=== PATIENT | female | born 1985 | race American Indian/Alaskan Native ===

== ENCOUNTER 2019-03-07 14:14 | Inpatient (IN) | payer BC, OTHER ==
--- NOTE | 2019-03-07 15:54 | C.PDOC ---
History Of Present Illness 33-year-old female is sent to the ED by Dr. Lewis for evaluation of ectopic . Patient states she had been experiencing brown discharge and suprapubic/ right-sided abdominal pain for around 2-3 days, and found out that she is today. Patient states her last menstrual period was 01/22/2019 and she is . Patient denies fever, chills, back pain, or any urinary symptoms at this time. <Ana Maria Montiel - Last Filed: 03/07/19 19:00> History Per: Patient History/Exam Limitations: no limitations Onset/Duration Of Symptoms: Days (2-3) Current Symptoms Are (Timing): Still Present Location Of Pain/Discomfort: Suprapubic, Other (right-sided ) Quality Of Discomfort: "Pain" Associated Symptoms: denies: Fever, Chills, Back Pain, Urinary Symptoms Additional History Per: Patient Abnormal Vaginal Bleeding: No : 5 Para: 4 <Ana Maria Montiel - Last Filed: 03/07/19 19:00> <Cristi Dean - Last Filed: 03/07/19 20:05> Time Seen by Provider: 03/07/19 15:23 Chief Complaint (Nursing): Abdominal Pain Past Medical History Reviewed: Historical Data, Nursing Documentation, Vital Signs Vital Signs: Last Vital Signs Temp 99.6 F 03/07/19 14:24 Pulse 91 H 03/07/19 14:24 Resp 18 03/07/19 14:24 BP 116/75 03/07/19 14:24 Pulse Ox 99 03/07/19 14:24 Primary Care Provider: Trish Arteaga - Medical History PMH: No Chronic Diseases Surgical History: No Surg Hx Family History: States: Unknown Family Hx - Social History Hx Tobacco Use: No Hx Alcohol Use: Yes Hx Substance Use: No - Immunization History Hx Tetanus Toxoid Vaccination: No Hx Influenza Vaccination: No Hx Pneumococcal Vaccination: No <Ana Maria Montiel - Last Filed: 03/07/19 19:00> Vital Signs: Last Vital Signs Temp 98.4 F 03/07/19 17:00 Pulse 86 03/07/19 17:00 Resp 18 03/07/19 17:00 BP 109/71 03/07/19 17:00 Pulse Ox 99 03/07/19 19:04 <Cristi Dean - Last Filed: 03/07/19 20:05> Review Of Systems Constitutional: Negative for: Fever, Chills Gastrointestinal: Positive for: Abdominal Pain (suprapubic, right-sided ) Genitourinary: Positive for: Vaginal Discharge. Negative for: Dysuria, Hematuria Musculoskeletal: Negative for: Back Pain <Ana Maria Montiel - Last Filed: 03/07/19 19:00> Physical Exam - Physical Exam Appears: Non-toxic, No Acute Distress, Other (obese female ) Skin: Normal Color, Warm, Dry Head: Atraumatic, Normacephalic Eye(s): bilateral: Normal Inspection Oral Mucosa: Moist Neck: Supple Chest: Symmetrical, No Deformity, No Tenderness Cardiovascular: Rhythm Regular, No Murmur Respiratory: Normal Breath Sounds, No Rales, No Rhonchi, No Wheezing Gastrointestinal/Abdominal: Soft, No Tenderness, No Guarding, No Rebound Extremity: Normal ROM, Capillary Refill (less than 2 seconds ) Neurological/Psych: Oriented x3, Normal Speech, Normal Cognition <Ana Maria Montiel - Last Filed: 03/07/19 19:00> ED Course And Treatment - Laboratory Results Result Diagrams: 03/07/19 16:11 03/07/19 16:11 O2 Sat by Pulse Oximetry: 99 (on RA) Pulse Ox Interpretation: Normal <Ana Maria Montiel - Last Filed: 03/07/19 19:00> - Laboratory Results Result Diagrams: 03/07/19 16:11 03/07/19 16:11 Lab Results: PT 11.2 SECONDS (9.7-12.2) 03/07/19 19:20 INR 1.0 03/07/19 19:20 APTT 29.0 SECONDS (21-34) 03/07/19 19:20 Total Bilirubin 1.1 mg/dL (0.2-1.3) 03/07/19 16:11 AST 24 U/L (14-36) 03/07/19 16:11 ALT 28 U/L (9-52) 03/07/19 16:11 Alkaline Phosphatase 41 U/L (38-126) 03/07/19 16:11 Total Protein 6.8 g/dL (6.3-8.3) 03/07/19 16:11 Albumin 3.7 g/dL (3.5-5.0) 03/07/19 16:11 Globulin 3.1 gm/dL (2.2-3.9) 03/07/19 16:11 Albumin/Globulin Ratio 1.2 (1.0-2.1) 03/07/19 16:11 Urine Color Yellow (YELLOW) 03/07/19 16:26 Urine Clarity Clear (Clear) 03/07/19 16:26 Urine pH 7.0 (5.0-8.0) 03/07/19 16:26 Ur Specific [place] 1.013 (1.003-1.030) 03/07/19 16:26 Urine Protein Negative mg/dL (NEGATIVE) 03/07/19 16:26 Urine Glucose (UA) Normal mg/dL (Normal) 03/07/19 16:26 Urine Ketones Negative mg/dL (NEGATIVE) 03/07/19 16:26 Urine Blood 2+ (NEGATIVE) H 03/07/19 16:26 Urine Nitrate Negative (NEGATIVE) 03/07/19 16:26 Urine Bilirubin Negative (NEGATIVE) 03/07/19 16:26 Urine Urobilinogen Normal mg/dL (0.2-1.0) 03/07/19 16:26 Ur Leukocyte Esterase Neg [place]/uL (Negative) 03/07/19 16:26 Urine WBC (Auto) < 1 /hpf (0-5) 03/07/19 16:26 Urine RBC (Auto) < 1 /hpf (0-3) 03/07/19 16:26 Ur Squamous Epith Cells 1 /hpf (0-5) 03/07/19 16:26 Beta HCG, Quant 3412.50 mIU/ML 03/07/19 16:11 <Cristi Dean - Last Filed: 03/07/19 20:05> Medical Decision Making Medical Decision Making: Impression: 33 year old female with vaginal discharge, suprapubic/right-sided abdominal pain Plan: * bloodwork * urinalysis * OB transvaginal ultrasound * reassess and disposition Progress: Bloodwork, urinalysis, and OB transvaginal ultrasound ordered and reviewed. [address] Weston that pt has ectopic; Dr Debbie osorio; states pt to go to ob hospitalist. Dr Lau notified to come see pt. second saline lock to pe placed. 1800 s/o top Dr Dean <Ana Maria Montiel - Last Filed: 03/07/19 19:00> Disposition - Disposition Disposition Time: 19:03 <Ana Maria Montiel - Last Filed: 03/07/19 19:00> Discussed With .: Kayla Lau Comment: accepted the pt [facility] and took over the care at 8:04 PM Doctor Will See Patient In The: Hospital Counseled Patient/Family Regarding: Studies Performed, Diagnosis <Cristi Dean - Last Filed: 03/07/19 20:05> - Disposition Disposition: HOSPITALIZED Condition: FAIR Forms: [facility] ([place]) - Clinical Impression Clinical Impression: Ectopic - PA / REFERRAL NURSE / Resident Statement MD/DO has reviewed & agrees with the documentation as recorded. - Scribe Statement The provider has reviewed the documentation as recorded by the Scribe (Zuleika Nguyen) All medical record entries made by the Scribe were at my direction and personally dictated by me. I have reviewed the chart and agree that the record accurately reflects my personal performance of the history, physical exam, medical decision making, and the department course for this patient. I have also personally directed, reviewed, and agree with the discharge instructions and disposition. <Ana Maria Montiel - Last Filed: 03/07/19 19:00> Physician Patient Turnover Patient Signed Over To: Cristi Dean Handoff Comments: f/u with Dr Lau, pt has ectopic <Ana Maria Montiel - Last Filed: 03/07/19 19:00> Decision To Admit <Ana Maria Montiel - Last Filed: 03/07/19 19:00> - Pt Status Changed To: Hospital Disposition Of: SDS- Endo,OR,Cath,IR - . Bed Request Type: Regular Admitting Physician: Kayla Lau <Cristi Dean - Last Filed: 03/07/19 20:05> - . Patient Diagnosis: Ectopic
[2019-03-07 16:17] LABS: BASO % 0.4 % (0.0-2.0); EOS # 0.1 K/uL (0.0-0.7); EOS % 1.6 % (0.0-4.0); HEMOGLOBIN 11.7 g/dL (11.0-16.0); LYMPH # 1.7 K/uL (1.0-4.3); LYMPH % 29.3 % (20.0-40.0); MEAN CELL VOLUME 98.4 fL (81.0-99.0); MEAN CORPUSCULAR HEMOGLOBIN 33.5 pg (27.0-31.0); MEAN CORPUSCULAR HGB CONC 34.1 g/dL (33.0-37.0); MEAN PLATELET VOLUME 8.8 fL (7.2-11.7); MONO # 0.6 K/uL (0.0-0.8); MONO % 11.1 % (0.0-10.0); NEUT # 3.3 K/uL (1.8-7.0); NEUT % 57.6 % (50.0-75.0); RBC 3.5 Mil/uL (3.80-5.20); RED CELL DISTRIBUTION WIDTH 12.4 % (11.5-14.5); WHITE BLOOD COUNT 5.8 K/uL (4.8-10.8)
[2019-03-07 16:28] LABS: SQUAMOUS EPITHIAL 1 /hpf (0-5); URINE BILIRUBIN NEGATIVE (NEGATIVE); URINE BLOOD 2+ (NEGATIVE); URINE CLARITY Clear (Clear); URINE COLOR Yellow (YELLOW); URINE GLUCOSE (UA) NORMAL (Normal); URINE LEUKOCYTE ESTERASE NEG Leu/uL (Negative); URINE PROTEIN NEGATIVE (NEGATIVE); URINE UROBILINOGEN NORMAL mg/dL (0.2-1.0)
[2019-03-07 16:29] LABS: ALB/GLOB RATIO 1.2 (1.0-2.1); ALBUMIN 3.7 g/dL (3.5-5.0); ALT/SGPT 28 U/L (9-52); AST/SGOT 24 U/L (14-36); BLOOD UREA NITROGEN 11 mg/dL (7-17); CALCIUM 8.7 mg/dl (8.6-10.4); GFR NON-AFRICAN AMERICAN > 60
--- NOTE | 2019-03-07 18:33 | US ---
Date of service: 03/07/2019 Indication: low ab pain, eval for ectopic Comparison: None available Technique: Real-time transabdominal pelvic ultrasound was performed. In addition a transvaginal pelvic ultrasound was necessary to better depict pelvic anatomy. Findings: Uterus measures approximately 13.5 x 6.4 x 6.9 cm. Anteverted. Cervix length measures approximately 4.0 cm. Large complex mass is noted in the region of the right adnexa with evidence of gestational sac measuring 1.1 cm consistent with gestational age 5 weeks 1 day. 2 mm yolk sac. 0.4 cm crown-rump length consistent with gestational age 6 weeks 0 days. heart motion is detected measuring approximately 113.4 beats per minute. Complex pelvic free fluid. The right ovary measures 4.3 x 2.1 x 2.9 cm. The left ovary measures 6.6 x 6.0 x 7.7 cm and contains evidence of 4.9 x 4.3 x 4.8 cm corpus luteal cyst. Blood flow was demonstrated to both ovaries. Impression: Large right adnexal complex mass consistent with ectopic as described above. Estimated gestational age 5 weeks 1 day by gestational sac calculation and 6 weeks 0 days by crown-rump length calculation. heartbeat is detected measuring approximately 113.4 beats per minute. Complex pelvic free fluid. 4.9 x 4.3 x 4.8 cm left corpus luteal cyst. Findings discussed with LUCA Montiel on 03/07/2019 at 6:26 p.m.
[2019-03-07] MEDS ORDERED: Sodium Chloride 0.9% 1,000 ML IV ONE (19:07)
[2019-03-07 19:36] LABS: PROTHROMBIN TIME 11.2 SECONDS (9.7-12.2)
[2019-03-07] MEDS ORDERED: Midazolam 2 MG/2 ML VIAL ONE (20:19)
[2019-03-07] MEDS ORDERED: Propofol 10 mg/ml Inj (20 ML) ONE ×2 (20:19→22:21)
[2019-03-07] MEDS ORDERED: Succinylcholine Chloride 20 mg/ml Syr (5 ml) IV ONE (20:20)
--- NOTE | 2019-03-07 20:24 | CP.PCM.HP ---
History of Present Illness - History of Present Illness History of Present Illness: History Of Present Illness 33-year-old female is sent to the ED by Dr. Lewis for evaluation of ectopic . Patient states she had been experiencing brown discharge and suprapubic/ right-sided abdominal pain for around 2-3 days, and found out that she is today. Patient states her last menstrual period was 01/22/2019 and she is. Patient denies fever, chills, back pain, or any urinary symptoms at this time. Admits to regular menses History Per: Patient History/Exam Limitations: no limitations Onset/Duration Of Symptoms: Days (2-3) Current Symptoms Are (Timing): Still Present Location Of Pain/Discomfort: Suprapubic, Other (right-sided ) Quality Of Discomfort: "Pain" Associated Symptoms: denies: Fever, Chills, Back Pain, Urinary Symptoms Additional History Per: Patient Abnormal Vaginal Bleeding: No : 4 Para: 2011 Time Seen by Provider: 03/07/19 20:15 Chief Complaint (Nursing): Abdominal Pain Past Medical History Reviewed: Historical Data, Nursing Documentation, Vital Signs Vital Signs: Last Vital Signs Temp 99.6 F 03/07/19 14:24 Pulse 91 H 03/07/19 14:24 Resp 18 03/07/19 14:24 BP 116/75 03/07/19 14:24 Pulse Ox 99 03/07/19 14:24 Primary Care Provider: Trish Arteaga - Medical History PMH: No Chronic Diseases Surgical History: 2 Previous C/S's Family History: States: Unknown Family Hx - Social History Hx Tobacco Use: No Hx Alcohol Use: Yes Hx Substance Use: No - Immunization History Hx Tetanus Toxoid Vaccination: No Hx Influenza Vaccination: No Hx Pneumococcal Vaccination: No Vital Signs: Last Vital Signs Temp 98.4 F 03/07/19 17:00 Pulse 86 03/07/19 17:00 Resp 18 03/07/19 17:00 BP 109/71 03/07/19 17:00 Pulse Ox 99 03/07/19 19:04 Review Of Systems Constitutional: Negative for: Fever, Chills Gastrointestinal: Positive for: Abdominal Pain (suprapubic, right-sided ) Genitourinary: Positive for: Vaginal Discharge. Negative for: Dysuria, Hematuria Musculoskeletal: Negative for: Back Pa Physical Exam - Physical Exam Appears: Non-toxic, No Acute Distress, Other (obese female ) Skin: Normal Color, Warm, Dry Head: Atraumatic, Normacephalic Eye(s): bilateral: Normal Inspection Oral Mucosa: Moist Neck: Supple Chest: Symmetrical, No Deformity, No Tenderness Cardiovascular: Rhythm Regular, No Murmur Respiratory: Normal Breath Sounds, No Rales, No Rhonchi, No Wheezing Gastrointestinal/Abdominal: Soft, No Tenderness, No Guarding, No Rebound Extremity: Normal ROM, Capillary Refill (less than 2 seconds ) Neurological/Psych: Oriented x3, Normal Speech, Normal Cognition Pelvic exam: External Genitalia, Vagina and Cervix WNL. Minimal tenderness over RLQ + fulness over Right Adnexa. No Guarding, Rebound ED Course And Treatment - Laboratory Results Result Diagrams: 03/07/19 16:11 03/07/19 16:11 O2 Sat by Pulse Oximetry: 99 (on RA) Pulse Ox Interpretation: Normal - Laboratory Results Result Diagrams: 03/07/19 16:11 03/07/19 16:11 Lab Results: PT 11.2 SECONDS (9.7-12.2) 03/07/19 19:20 INR 1.0 03/07/19 19:20 APTT 29.0 SECONDS (21-34) 03/07/19 19:20 Total Bilirubin 1.1 mg/dL (0.2-1.3) 03/07/19 16:11 AST 24 U/L (14-36) 03/07/19 16:11 ALT 28 U/L (9-52) 03/07/19 16:11 Alkaline Phosphatase 41 U/L (38-126) 03/07/19 16:11 Total Protein 6.8 g/dL (6.3-8.3) 03/07/19 16:11 Albumin 3.7 g/dL (3.5-5.0) 03/07/19 16:11 Globulin 3.1 gm/dL (2.2-3.9) 03/07/19 16:11 Albumin/Globulin Ratio 1.2 (1.0-2.1) 03/07/19 16:11 Urine Color Yellow (YELLOW) 03/07/19 16:26 Urine Clarity Clear (Clear) 03/07/19 16:26 Urine pH 7.0 (5.0-8.0) 03/07/19 16:26 Ur Specific [place] 1.013 (1.003-1.030) 03/07/19 16:26 Urine Protein Negative mg/dL (NEGATIVE) 03/07/19 16:26 Urine Glucose (UA) Normal mg/dL (Normal) 03/07/19 16:26 Urine Ketones Negative mg/dL (NEGATIVE) 03/07/19 16:26 Urine Blood 2+ (NEGATIVE) H 03/07/19 16:26 Urine Nitrate Negative (NEGATIVE) 03/07/19 16:26 Urine Bilirubin Negative (NEGATIVE) 03/07/19 16:26 Urine Urobilinogen Normal mg/dL (0.2-1.0) 03/07/19 16:26 Ur Leukocyte Esterase Neg [place]/uL (Negative) 03/07/19 16:26 Urine WBC (Auto) < 1 /hpf (0-5) 03/07/19 16:26 Urine RBC (Auto) < 1 /hpf (0-3) 03/07/19 16:26 Ur Squamous Epith Cells 1 /hpf (0-5) 03/07/19 16:26 Beta HCG, Quant 3412.50 mIU/ML 03/07/19 16:11 Medical Decision Making Medical Decision Making: Impression: 33 year old female with vaginal discharge, suprapubic/right-sided abdominal pain Plan: * bloodwork * urinalysis * OB transvaginal ultrasound * reassess and disposition Progress: Bloodwork, urinalysis, and OB transvaginal ultrasound ordered and reviewed. [address] Weston that pt has ectopic; Dr Debbie osorio; states pt to go to ob hospitalist. Dr Lau notified to come see pt. second saline lock to pe placed. 1800 s/o top Dr Dean Disposition - Disposition Disposition Time: 19:03 Discussed With: Patient and significant other Counseled Patient/Family Regarding: Studies Performed, Diagnosis - Disposition Disposition: HOSPITALIZED Condition: FAIR Forms: [facility] ([place]) - Clinical Impression Clinical Impression: Ectopic Decision To Admit - Pt Status Changed To: Hospital Disposition Of: SDS- OR, - . Bed Request Type: Regular Admitting Physician: Kayla Lau - . Patient Diagnosis: Ectopic Present on Admission - Present on Admission Any Indicators Present on Admission: No Past Patient History - Past Social History Smoking Status: Never Smoked - PSYCHIATRIC Hx Substance Use: No - SURGICAL HISTORY Hx Surgeries: Yes Hx Section: Yes Hx Orthopedic Surgery: Yes (left foot sx) Meds Allergies/Adverse Reactions: Allergies Allergy/AdvReac Type Severity Reaction Status Date / Time No Known Allergies Allergy Verified 03/07/19 14:28 Results - Vital Signs Recent Vital Signs: Last Vital Signs Temp 98.4 F 03/07/19 20:17 Pulse 82 03/07/19 20:17 Resp 18 03/07/19 20:17 BP 112/70 03/07/19 20:17 Pulse Ox 100 03/07/19 20:17 - Labs Result Diagrams: 03/08/19 07:29 03/07/19 16:11 Labs: Laboratory Results - last 24 hr 03/07/19 03/07/19 03/07/19 16:11 16:11 16:11 WBC 5.8 RBC 3.50 L Hgb 11.7 Hct 34.4 MCV 98.4 MCH 33.5 H MCHC 34.1 RDW 12.4 Plt Count 189 MPV 8.8 Neut % (Auto) 57.6 Lymph % (Auto) 29.3 [place] % (Auto) 11.1 H Eos % (Auto) 1.6 Baso % (Auto) 0.4 Neut # (Auto) 3.3 Lymph # (Auto) 1.7 [place] # (Auto) 0.6 Eos # (Auto) 0.1 Baso # (Auto) 0.0 PT INR APTT Sodium 137 Potassium 3.9 Chloride 104 Carbon Dioxide 25 Anion Gap 12 BUN 11 Creatinine 0.8 Est GFR ( Amer) > 60 Est GFR (Non-Af Amer) > 60 Random Glucose 97 Calcium 8.7 Total Bilirubin 1.1 AST 24 ALT 28 Alkaline Phosphatase 41 Total Protein 6.8 Albumin 3.7 Globulin 3.1 Albumin/Globulin Ratio 1.2 Beta HCG, Quant 3412.50 Urine Color Urine Clarity Urine pH Ur Specific [place] Urine Protein Urine Glucose (UA) Urine Ketones Urine Blood Urine Nitrate Urine Bilirubin Urine Urobilinogen Ur Leukocyte Esterase Urine WBC (Auto) Urine RBC (Auto) Ur Squamous Epith Cells Blood Type O POSITIVE Antibody Screen Negative 03/07/19 03/07/19 16:26 19:20 WBC RBC Hgb Hct MCV MCH MCHC RDW Plt Count MPV Neut % (Auto) Lymph % (Auto) [place] % (Auto) Eos % (Auto) Baso % (Auto) Neut # (Auto) Lymph # (Auto) [place] # (Auto) Eos # (Auto) Baso # (Auto) PT 11.2 INR 1.0 APTT 29.0 Sodium Potassium Chloride Carbon Dioxide Anion Gap BUN Creatinine Est GFR ( Amer) Est GFR (Non-Af Amer) Random Glucose Calcium Total Bilirubin AST ALT Alkaline Phosphatase Total Protein Albumin Globulin Albumin/Globulin Ratio Beta HCG, Quant Urine Color Yellow Urine Clarity Clear Urine pH 7.0 Ur Specific [place] 1.013 Urine Protein Negative Urine Glucose (UA) Normal Urine Ketones Negative Urine Blood 2+ H Urine Nitrate Negative Urine Bilirubin Negative Urine Urobilinogen Normal Ur Leukocyte Esterase Neg Urine WBC (Auto) < 1 Urine RBC (Auto) < 1 Ur Squamous Epith Cells 1 Blood Type Antibody Screen Assessment & Plan - Assessment and Plan (Free Text) Assessment: Right Ectopic Plan: Operative Procedure ie Laparoscopy and possible Laparotomy, Possible Right Salpingo-Oophorectomy, possible Hysterectomy. Procedure, risks and possible complications fully reviewed with patient and her partner and both verbalized understanding after all of their questions were answered to their full satisfaction. Pt requested to proceed and signed the consent, including the blood transfusion consent. Willl proceed - Date & Time Date: 03/07/19 Time: 20:40
[2019-03-07] MEDS ORDERED: ceFOXitin IV 1 gm/100 ml in NS 2 GM/200 ML BAG ONE (20:30)
[2019-03-07] MEDS ORDERED: Rocuronium 10 mg/ml (5 ml) ONE (21:02)
[2019-03-07] MEDS ORDERED: Phenylephrine 10 mg/ml Inj ONE (21:06)
[2019-03-07] MEDS ORDERED: Neostigmine 1:1000 (1 mg/ml) Inj ONE (21:36)
[2019-03-07] MEDS ORDERED: Esmolol 100 mg/10ml Inj IV ONE (21:59)
[2019-03-07] MEDS ORDERED: Trimethobenzamide 200 mg/2 mL Inj IM PRN (23:09)
[2019-03-07] MEDS ORDERED: HYDROmorphone 0.5 mg/0.5 ml ISec ONE ×3 (23:11→23:47)
[2019-03-07] MEDS: HYDROmorphone 0.5 mg/0.5 ml ISec IVP PRN ×3 (23:11→23:45)
[2019-03-07] MEDS ORDERED: cefOXitin IV 1 gm in Dextrose 1 GM/50 ML BAG IVPB SCH (23:15)
[2019-03-07] MEDS ORDERED: Lactated Ringer's 1,000 ML IV SCH (23:15)
--- NOTE | 2019-03-07 23:36 | PCM.SURG1 ---
Surgeon's Initial Post Op Note - Surgeon's Notes Surgeon: Kayla Lau Robotic Welder: Omer Turk Type of Anesthesia: General Endo Anesthesia Administered By: Dr. Enriquez Pre-Operative Diagnosis: Large Right Ectopic with Positive Cardiac Activity. Large BMI. History of 2 previous Sections Operative Findings: Large right Ectopic . Multiple pelvic, Omental and Bowel adhesions. Hemoperitoneun Post-Operative Diagnosis: S/P Failed Laparoscopy. Large Right Ectopic . Large Hemoperitoneum Operation Performed: EUA, Attempted Laparoscopy, Exploratory Laparotomy with complete resection of Right Fallopian Tube with ectopic and with Ligature, Lysis of adhesions, Evacuation of Hemoperitoneum Specimen/Specimens Removed: Right Fallopian Tube with ectopic Estimated Blood Loss: EBL {In ML}: 600 Blood Products Given: N/A Drains Used: No Drains Post-Op Condition: Good Date of Surgery/Procedure: 03/07/19 Time of Surgery/Procedure: 20:30
--- NOTE | 2019-03-07 23:49 | CP.PCM.CON ---
History of Present Illness - History of Present Illness History of Present Illness: History Of Present Illness 33-year-old female is sent to the ED by Dr. Lewis for evaluation of ectopic . Patient states she had been experiencing brown discharge and suprapubic/ right-sided abdominal pain for around 2-3 days, and found out that she is today. Patient states her last menstrual period was 01/22/2019 and she is. Patient denies fever, chills, back pain, or any urinary symptoms at this time. Admits to regular menses History Per: Patient History/Exam Limitations: no limitations Onset/Duration Of Symptoms: Days (2-3) Current Symptoms Are (Timing): Still Present Location Of Pain/Discomfort: Suprapubic, Other (right-sided ) Quality Of Discomfort: "Pain" Associated Symptoms: denies: Fever, Chills, Back Pain, Urinary Symptoms Additional History Per: Patient Abnormal Vaginal Bleeding: No : 4 Para: 2011 Time Seen by Provider: 03/07/19 20:15 Chief Complaint (Nursing): Abdominal Pain Past Medical History Reviewed: Historical Data, Nursing Documentation, Vital Signs Vital Signs: Last Vital Signs Temp 99.6 F 03/07/19 14:24 Pulse 91 H 03/07/19 14:24 Resp 18 03/07/19 14:24 BP 116/75 03/07/19 14:24 Pulse Ox 99 03/07/19 14:24 Primary Care Provider: Trish Arteaga - Medical History PMH: No Chronic Diseases Surgical History: 2 Previous C/S's Family History: States: Unknown Family Hx - Social History Hx Tobacco Use: No Hx Alcohol Use: Yes Hx Substance Use: No - Immunization History Hx Tetanus Toxoid Vaccination: No Hx Influenza Vaccination: No Hx Pneumococcal Vaccination: No Vital Signs: Last Vital Signs Temp 98.4 F 03/07/19 17:00 Pulse 86 03/07/19 17:00 Resp 18 03/07/19 17:00 BP 109/71 03/07/19 17:00 Pulse Ox 99 03/07/19 19:04 Review Of Systems Constitutional: Negative for: Fever, Chills Gastrointestinal: Positive for: Abdominal Pain (suprapubic, right-sided ) Genitourinary: Positive for: Vaginal Discharge. Negative for: Dysuria, Hematuria Musculoskeletal: Negative for: Back Pa Physical Exam - Physical Exam Appears: Non-toxic, No Acute Distress, Other (obese female ) Skin: Normal Color, Warm, Dry Head: Atraumatic, Normacephalic Eye(s): bilateral: Normal Inspection Oral Mucosa: Moist Neck: Supple Chest: Symmetrical, No Deformity, No Tenderness Cardiovascular: Rhythm Regular, No Murmur Respiratory: Normal Breath Sounds, No Rales, No Rhonchi, No Wheezing Gastrointestinal/Abdominal: Soft, No Tenderness, No Guarding, No Rebound Extremity: Normal ROM, Capillary Refill (less than 2 seconds ) Neurological/Psych: Oriented x3, Normal Speech, Normal Cognition Pelvic exam: External Genitalia, Vagina and Cervix WNL. Minimal tenderness over RLQ + fulness over Right Adnexa. No Guarding, Rebound ED Course And Treatment - Laboratory Results Result Diagrams: 03/07/19 16:11 03/07/19 16:11 O2 Sat by Pulse Oximetry: 99 (on RA) Pulse Ox Interpretation: Normal - Laboratory Results Result Diagrams: 03/07/19 16:11 03/07/19 16:11 Lab Results: PT 11.2 SECONDS (9.7-12.2) 03/07/19 19:20 INR 1.0 03/07/19 19:20 APTT 29.0 SECONDS (21-34) 03/07/19 19:20 Total Bilirubin 1.1 mg/dL (0.2-1.3) 03/07/19 16:11 AST 24 U/L (14-36) 03/07/19 16:11 ALT 28 U/L (9-52) 03/07/19 16:11 Alkaline Phosphatase 41 U/L (38-126) 03/07/19 16:11 Total Protein 6.8 g/dL (6.3-8.3) 03/07/19 16:11 Albumin 3.7 g/dL (3.5-5.0) 03/07/19 16:11 Globulin 3.1 gm/dL (2.2-3.9) 03/07/19 16:11 Albumin/Globulin Ratio 1.2 (1.0-2.1) 03/07/19 16:11 Urine Color Yellow (YELLOW) 03/07/19 16:26 Urine Clarity Clear (Clear) 03/07/19 16:26 Urine pH 7.0 (5.0-8.0) 03/07/19 16:26 Ur Specific [place] 1.013 (1.003-1.030) 03/07/19 16:26 Urine Protein Negative mg/dL (NEGATIVE) 03/07/19 16:26 Urine Glucose (UA) Normal mg/dL (Normal) 03/07/19 16:26 Urine Ketones Negative mg/dL (NEGATIVE) 03/07/19 16:26 Urine Blood 2+ (NEGATIVE) H 03/07/19 16:26 Urine Nitrate Negative (NEGATIVE) 03/07/19 16:26 Urine Bilirubin Negative (NEGATIVE) 03/07/19 16:26 Urine Urobilinogen Normal mg/dL (0.2-1.0) 03/07/19 16:26 Ur Leukocyte Esterase Neg [place]/uL (Negative) 03/07/19 16:26 Urine WBC (Auto) < 1 /hpf (0-5) 03/07/19 16:26 Urine RBC (Auto) < 1 /hpf (0-3) 03/07/19 16:26 Ur Squamous Epith Cells 1 /hpf (0-5) 03/07/19 16:26 Beta HCG, Quant 3412.50 mIU/ML 03/07/19 16:11 Medical Decision Making Medical Decision Making: Impression: 33 year old female with vaginal discharge, suprapubic/right-sided abdominal pain Plan: * bloodwork * urinalysis * OB transvaginal ultrasound Progress: Bloodwork, urinalysis, and OB transvaginal ultrasound ordered and reviewed. Dr Lewis paged by ER and stated pt to go to ob hospitalist. Dr Lau notified to come see pt Disposition - Disposition Disposition Time: 19:03 Discussed With : Patient and significant other Counseled Patient/Family Regarding: Studies Performed, Diagnosis - Disposition Disposition: HOSPITALIZED Condition: FAIR Forms: [facility] (Setswana) - Clinical Impression Clinical Impression: Ectopic Past Patient History - Past Social History Smoking Status: Never Smoked - PSYCHIATRIC Hx Substance Use: No - SURGICAL HISTORY Hx Surgeries: Yes Hx Section: Yes Hx Orthopedic Surgery: Yes (left foot sx) Meds Allergies/Adverse Reactions: Allergies Allergy/AdvReac Type Severity Reaction Status Date / Time No Known Allergies Allergy Verified 03/07/19 14:28 - Medications Medications: Current Medications Hydromorphone HCl (Dilaudid) 0.5 mg IVP Q5M PRN PRN Reason: Pain, severe (8-10) Stop: 03/07/19 23:59 Last Admin: 03/07/19 23:18 Dose: 0.5 mg Cefoxitin Sodium (Mefoxin Iv 1 Gm Duplex) 1 gm in 50 mls @ 50 mls/hr IVPB Q8H JENI; Protocol Stop: 03/08/19 16:14 Lactated Ringer's (Lactated Ringer's) 1,000 mls @ 125 mls/hr IV .Q8H JENI Morphine Sulfate (Morphine) 10 mg IM Q4H PRN PRN Reason: Pain, severe (8-10) Ondansetron HCl (Zofran Inj) 4 mg IVP ONCE PRN PRN Reason: Nausea/Vomiting Stop: 03/07/19 23:59 Oxycodone/Acetaminophen (Percocet 5/325 Mg Tab) 1 tab PO Q4 PRN PRN Reason: Pain, moderate (4-7) Stop: 03/10/19 23:10 Trimethobenzamide HCl (Tigan) 200 mg IM Q6 PRN PRN Reason: Nausea/Vomiting Results - Vital Signs Recent Vital Signs: Last Vital Signs Temp 97.4 F L 03/07/19 23:00 Pulse 97 H 03/07/19 23:00 Resp 12 03/07/19 23:00 BP 130/76 03/07/19 23:00 Pulse Ox 99 03/07/19 23:00 - Labs Result Diagrams: 03/07/19 16:11 03/07/19 16:11 Labs: Laboratory Results - last 24 hr 03/07/19 03/07/19 03/07/19 16:11 16:11 16:11 WBC 5.8 RBC 3.50 L Hgb 11.7 Hct 34.4 MCV 98.4 MCH 33.5 H MCHC 34.1 RDW 12.4 Plt Count 189 MPV 8.8 Neut % (Auto) 57.6 Lymph % (Auto) 29.3 [place] % (Auto) 11.1 H Eos % (Auto) 1.6 Baso % (Auto) 0.4 Neut # (Auto) 3.3 Lymph # (Auto) 1.7 [place] # (Auto) 0.6 Eos # (Auto) 0.1 Baso # (Auto) 0.0 PT INR APTT Sodium 137 Potassium 3.9 Chloride 104 Carbon Dioxide 25 Anion Gap 12 BUN 11 Creatinine 0.8 Est GFR ( Amer) > 60 Est GFR (Non-Af Amer) > 60 Random Glucose 97 Calcium 8.7 Total Bilirubin 1.1 AST 24 ALT 28 Alkaline Phosphatase 41 Total Protein 6.8 Albumin 3.7 Globulin 3.1 Albumin/Globulin Ratio 1.2 Beta HCG, Quant 3412.50 Urine Color Urine Clarity Urine pH Ur Specific [place] Urine Protein Urine Glucose (UA) Urine Ketones Urine Blood Urine Nitrate Urine Bilirubin Urine Urobilinogen Ur Leukocyte Esterase Urine WBC (Auto) Urine RBC (Auto) Ur Squamous Epith Cells Blood Type O POSITIVE Antibody Screen Negative 03/07/19 03/07/19 16:26 19:20 WBC RBC Hgb Hct MCV MCH MCHC RDW Plt Count MPV Neut % (Auto) Lymph % (Auto) [place] % (Auto) Eos % (Auto) Baso % (Auto) Neut # (Auto) Lymph # (Auto) [place] # (Auto) Eos # (Auto) Baso # (Auto) PT 11.2 INR 1.0 APTT 29.0 Sodium Potassium Chloride Carbon Dioxide Anion Gap BUN Creatinine Est GFR ( Amer) Est GFR (Non-Af Amer) Random Glucose Calcium Total Bilirubin AST ALT Alkaline Phosphatase Total Protein Albumin Globulin Albumin/Globulin Ratio Beta HCG, Quant Urine Color Yellow Urine Clarity Clear Urine pH 7.0 Ur Specific [place] 1.013 Urine Protein Negative Urine Glucose (UA) Normal Urine Ketones Negative Urine Blood 2+ H Urine Nitrate Negative Urine Bilirubin Negative Urine Urobilinogen Normal Ur Leukocyte Esterase Neg Urine WBC (Auto) < 1 Urine RBC (Auto) < 1 Ur Squamous Epith Cells 1 Blood Type Antibody Screen Assessment & Plan - Assessment and Plan (Free Text) Assessment: - Assessment and Plan (Free Text) Assessment: Right Ectopic Plan: Operative Procedure ie Laparoscopy and possible Laparotomy, Possible Right Salpingo-Oophorectomy, possible Hysterectomy. Procedure, risks and possible complications fully reviewed with patient and her partner and both verbalized understanding after all of their questions were answered to their full satisfaction. Pt requested to proceed and signed the consent, including the blood transfusion consent. Willl proceed - Date & Time Date: 03/07/19 Time: 20:40 - Date & Time Date: 03/07/19 Time: 20:10
[2019-03-08] MEDS: cefOXitin IV 1 gm in Dextrose 1 GM/50 ML BAG IVPB SCH ×2 (02:00→10:55)
[2019-03-08] MEDS ORDERED: Morphine 4 MG/ML VIAL IVP PRN (05:00)
[2019-03-08 07:37] LABS: HEMOGLOBIN 11.6 g/dL (11.0-16.0); MEAN CELL VOLUME 97.7 fL (81.0-99.0); MEAN CORPUSCULAR HEMOGLOBIN 34.7 pg (27.0-31.0); MEAN CORPUSCULAR HGB CONC 35.6 g/dL (33.0-37.0); MEAN PLATELET VOLUME 8.9 fL (7.2-11.7); RBC 3.35 Mil/uL (3.80-5.20); RED CELL DISTRIBUTION WIDTH 12.3 % (11.5-14.5)
[2019-03-08 07:40] LABS: WHITE BLOOD COUNT 9.7 K/uL (4.8-10.8)
[2019-03-08] MEDS: Oxycodone/Acetaminophen 5/325 mg Tab PO PRN ×3 (09:26→20:53)
[2019-03-08] MEDS ORDERED: Lactated Ringer's 500 ML IV ONE (11:54)
--- NOTE | 2019-03-08 12:35 | CP.PCM.PN ---
Subjective - Date & Time of Evaluation Date of Evaluation: 03/08/19 Time of Evaluation: 10:30 - Subjective Subjective: [employer] progress note for Pt seen and examined at bedside. Pt is POD #1 s/p exploratory Laparotomy with complete resection of Right Fallopian Tube with ectopic , yysis of adhesions, evacuation of Hemoperitoneum. Pt lying in bed, reports wanted to ambulate and have a diet. Pt reports intermittent pain, 8/10 at its maximum, short duration. Denies flatulence/bowel movement. Pt denies fevers, chills, nausea, chest pain, SOB, diarrhea, constipation. Objective - Vital Signs/Intake and Output Vital Signs (last 24 hours): Temp Pulse Resp BP Pulse Ox 98.9 F 93 H 18 104/63 100 03/08/19 08:00 03/08/19 08:00 03/08/19 08:00 03/08/19 08:00 03/08/19 08:00 Intake and Output: 03/08/19 03/08/19 06:59 18:59 Intake Total 1750 Output Total 300 Balance 1450 - Medications Medications: Current Medications Lactated Ringer's (Lactated Ringer's) 1,000 mls @ 125 mls/hr IV .Q8H JENI Last Admin: 03/08/19 09:33 Dose: 125 mls/hr Morphine Sulfate (Morphine) 5 mg IVP Q4H PRN PRN Reason: Pain, severe (8-10) Last Admin: 03/08/19 05:33 Dose: 5 mg Oxycodone/Acetaminophen (Percocet 5/325 Mg Tab) 1 tab PO Q4 PRN PRN Reason: Pain, moderate (4-7) Stop: 03/10/19 23:10 Last Admin: 03/08/19 09:26 Dose: 1 tab Trimethobenzamide HCl (Tigan) 200 mg IM Q6 PRN PRN Reason: Nausea/Vomiting - Labs Labs: 03/08/19 07:29 03/07/19 16:11 PT 11.2 SECONDS (9.7-12.2) 03/07/19 19:20 INR 1.0 03/07/19 19:20 APTT 29.0 SECONDS (21-34) 03/07/19 19:20 - Constitutional Appears: Non-toxic, No Acute Distress - Head Exam Head Exam: NORMAL INSPECTION - Eye Exam Eye Exam: EOMI - ENT Exam ENT Exam: Mucous Membranes Moist - Respiratory Exam Respiratory Exam: Clear to Ausculation Bilateral, NORMAL BREATHING PATTERN. absent: Rales, Rhonchi, Wheezes - Cardiovascular Exam Cardiovascular Exam: +S1, +S2. absent: Murmur - GI/Abdominal Exam Additional comments: transverse lower abdominal incision, clean dry, intact, koki present, no erythema, no discharge - Extremities Exam Extremities Exam: Full ROM, Normal Inspection. absent: Calf Tenderness, Pedal Edema - Back Exam Back Exam: absent: CVA tenderness (L), CVA tenderness (R) - Neurological Exam Neurological Exam: Alert, Awake, Oriented x3 - Psychiatric Exam Psychiatric exam: Normal Affect, Normal Mood - Skin Skin Exam: Dry, Intact, Normal Color, Warm Assessment and Plan - Assessment and Plan (Free Text) Assessment: 33 F w/ POD # 1, s/p exploratory laparotomy with complete resection of right fallopian tube with ectopic , lysis of adhesions, evacuation of hemoperitoneum Plan: - 500ml LR bolus for possible dehydration (h/H similar to pres-surgery) - c/w IV fluids - pain medication conversion to PO to percocet 1 tab Q4 - encourage ambulation - regular diet - repeat CBC @ 1800
[2019-03-08 20:23] LABS: BASO # 0.1 K/uL (0.0-0.2); BASO % 0.5 % (0.0-2.0); EOS # 0.1 K/uL (0.0-0.7); EOS % 0.5 % (0.0-4.0); HEMOGLOBIN 11.5 g/dL (11.0-16.0); LYMPH # 2.3 K/uL (1.0-4.3); LYMPH % 20.7 % (20.0-40.0); MEAN CELL VOLUME 97.1 fL (81.0-99.0); MEAN CORPUSCULAR HEMOGLOBIN 33.1 pg (27.0-31.0); MEAN CORPUSCULAR HGB CONC 34.1 g/dL (33.0-37.0); MEAN PLATELET VOLUME 8.9 fL (7.2-11.7); MONO # 1.2 K/uL (0.0-0.8); MONO % 10.9 % (0.0-10.0); NEUT # 7.6 K/uL (1.8-7.0); NEUT % 67.4 % (50.0-75.0); NRBC % 0.1 % (0.0-2.0); RBC 3.48 Mil/uL (3.80-5.20); RED CELL DISTRIBUTION WIDTH 12.2 % (11.5-14.5); WHITE BLOOD COUNT 11.3 K/uL (4.8-10.8)
--- NOTE | 2019-03-09 13:49 | CP.PCM.PN ---
Subjective - Date & Time of Evaluation Date of Evaluation: 03/09/19 Time of Evaluation: 10:00 - Subjective Subjective: Patient was seen and examined at bedside. She currently reports a 2/10 pain associated with movement. She reports minimal vaginal spotting, no vaginal discharge. Patient is currently passing gas and urinating, she has not had a bowel movement. She is currently ambulating in the hallway and in her room, reported drinking 3-4 liters of water per day. She is tolerating her solid diet, denies nausea and vomiting. Patient denied fevers, chills, chest pain, chest tightness, shortness of breath, diarrhea, abdominal pain and numbness and tingling on extremities. Objective - Vital Signs/Intake and Output Vital Signs (last 24 hours): Temp Pulse Resp BP Pulse Ox 98.3 F 96 H 18 101/64 98 03/09/19 08:00 03/09/19 08:00 03/09/19 08:00 03/09/19 08:00 03/09/19 08:00 Intake and Output: 03/09/19 03/09/19 06:59 18:59 Intake Total 300 Balance 300 - Medications Medications: Current Medications Lactated Ringer's (Lactated Ringer's) 1,000 mls @ 125 mls/hr IV .Q8H [facility] Last Admin: 03/08/19 09:33 Dose: 125 mls/hr Ibuprofen (Motrin Tab) 600 mg PO QID [facility] Last Admin: 03/09/19 13:31 Dose: Not Given Morphine Sulfate (Morphine) 5 mg IVP Q4H PRN PRN Reason: Pain, severe (8-10) Last Admin: 03/08/19 05:33 Dose: 5 mg Oxycodone/Acetaminophen (Percocet 5/325 Mg Tab) 1 tab PO Q4 PRN PRN Reason: Pain, moderate (4-7) Stop: 03/10/19 23:10 Last Admin: 03/08/19 20:53 Dose: 1 tab Trimethobenzamide HCl (Tigan) 200 mg IM Q6 PRN PRN Reason: Nausea/Vomiting - Labs Labs: 03/08/19 20:12 03/07/19 16:11 PT 11.2 SECONDS (9.7-12.2) 03/07/19 19:20 INR 1.0 03/07/19 19:20 APTT 29.0 SECONDS (21-34) 03/07/19 19:20 - Constitutional Appears: Non-toxic, No Acute Distress - Head Exam Head Exam: NORMAL INSPECTION - Eye Exam Eye Exam: EOMI - ENT Exam ENT Exam: Mucous Membranes Moist - Respiratory Exam Respiratory Exam: Clear to Ausculation Bilateral. absent: Rales, Rhonchi, Wheezes - Cardiovascular Exam Cardiovascular Exam: +S1, +S2. absent: Murmur - GI/Abdominal Exam GI & Abdominal Exam: Soft, Tenderness Additional comments: tender around incision sites, site clean, dry, no erythema present - Extremities Exam Extremities Exam: Pedal Edema Additional comments: trace pedal edema - Back Exam Back Exam: absent: CVA tenderness (L), CVA tenderness (R) - Neurological Exam Neurological Exam: Alert, Awake, Oriented x3 - Psychiatric Exam Psychiatric exam: Normal Affect, Normal Mood - Skin Skin Exam: Dry, Normal Color, Warm Assessment and Plan - Assessment and Plan (Free Text) Assessment: 33 F w/ POD # 2, s/p exploratory laparotomy with complete resection of right fallopian tube with ectopic , lysis of adhesions, evacuation of hemoperitoneum - Symptomatic pain management with Ibuprofen and Percocet - Encourage ambulation - Encourage hydration - Patient was educated to take off bandage in the shower and allow water to run over her incision site - Monitor bowel movement
[2019-03-09 22:56] VITALS: O2SAT 100
[2019-03-10] MEDS: Oxycodone/Acetaminophen 5/325 mg Tab PO PRN (04:18)
[2019-03-10 09:47] VITALS: BP 106/66; PULSE 82; RESP 18; TEMP 98.6
--- NOTE | 2019-03-10 14:33 | CP.PCM.DIS ---
<David Lee - Last Filed: 03/10/19 17:53> Provider - Provider Date of Admission: 03/07/19 20:03 Attending physician: Kayla Lau DO Primary care physician: RADIOGRAPHER CARDIAC CATHETERIZATION: DR. LEWIS PMD: Trish Arteaga Consults: 03/07/19 18:35 Physician Consult Stat Comment: Consulting Provider: Kayla Lau Consulting Physician: Kayla Lau Reason for Consult: right ectopic Time Spent in preparation of Discharge (in minutes): 38 Diagnosis - Discharge Diagnosis (1) Ectopic Status: Acute Comment: see hospital course Hospital Course - Lab Results Lab Results: Most Recent Lab Values WBC 11.3 K/uL (4.8-10.8) H 03/08/19 20:12 RBC 3.48 Mil/uL (3.80-5.20) L 03/08/19 20:12 Hgb 11.5 g/dL (11.0-16.0) 03/08/19 20:12 Hct 33.7 % (34.0-47.0) L 03/08/19 20:12 MCV 97.1 fL (81.0-99.0) 03/08/19 20:12 MCH 33.1 pg (27.0-31.0) H 03/08/19 20:12 MCHC 34.1 g/dL (33.0-37.0) 03/08/19 20:12 RDW 12.2 % (11.5-14.5) 03/08/19 20:12 Plt Count 207 K/uL (130-400) 03/08/19 20:12 MPV 8.9 fL (7.2-11.7) 03/08/19 20:12 Neut % (Auto) 67.4 % (50.0-75.0) 03/08/19 20:12 Lymph % (Auto) 20.7 % (20.0-40.0) 03/08/19 20:12 Granite % (Auto) 10.9 % (0.0-10.0) H 03/08/19 20:12 Eos % (Auto) 0.5 % (0.0-4.0) 03/08/19 20:12 Baso % (Auto) 0.5 % (0.0-2.0) 03/08/19 20:12 Neut # (Auto) 7.6 K/uL (1.8-7.0) H 03/08/19 20:12 Lymph # (Auto) 2.3 K/uL (1.0-4.3) 03/08/19 20:12 Granite # (Auto) 1.2 K/uL (0.0-0.8) H 03/08/19 20:12 Eos # (Auto) 0.1 K/uL (0.0-0.7) 03/08/19 20:12 Baso # (Auto) 0.1 K/uL (0.0-0.2) 03/08/19 20:12 PT 11.2 SECONDS (9.7-12.2) 03/07/19 19:20 INR 1.0 03/07/19 19:20 APTT 29.0 SECONDS (21-34) 03/07/19 19:20 Sodium 137 mmol/L (132-148) 03/07/19 16:11 Potassium 3.9 mmol/L (3.6-5.2) 03/07/19 16:11 Chloride 104 mmol/L (98-107) 03/07/19 16:11 Carbon Dioxide 25 mmol/L (22-30) 03/07/19 16:11 Anion Gap 12 (10-20) 03/07/19 16:11 BUN 11 mg/dL (7-17) 03/07/19 16:11 Creatinine 0.8 mg/dL (0.7-1.2) 03/07/19 16:11 Est GFR ( Amer) > 60 03/07/19 16:11 Est GFR (Non-Af Amer) > 60 03/07/19 16:11 Random Glucose 97 mg/dL (65-105) 03/07/19 16:11 Calcium 8.7 mg/dl (8.6-10.4) 03/07/19 16:11 Total Bilirubin 1.1 mg/dL (0.2-1.3) 03/07/19 16:11 AST 24 U/L (14-36) 03/07/19 16:11 ALT 28 U/L (9-52) 03/07/19 16:11 Alkaline Phosphatase 41 U/L (38-126) 03/07/19 16:11 Total Protein 6.8 g/dL (6.3-8.3) 03/07/19 16:11 Albumin 3.7 g/dL (3.5-5.0) 03/07/19 16:11 Globulin 3.1 gm/dL (2.2-3.9) 03/07/19 16:11 Albumin/Globulin Ratio 1.2 (1.0-2.1) 03/07/19 16:11 Beta HCG, Quant 748.86 mIU/ML 03/09/19 08:26 Urine Color Yellow (YELLOW) 03/07/19 16:26 Urine Clarity Clear (Clear) 03/07/19 16:26 Urine pH 7.0 (5.0-8.0) 03/07/19 16:26 Ur Specific [place] 1.013 (1.003-1.030) 03/07/19 16:26 Urine Protein Negative mg/dL (NEGATIVE) 03/07/19 16:26 Urine Glucose (UA) Normal mg/dL (Normal) 03/07/19 16:26 Urine Ketones Negative mg/dL (NEGATIVE) 03/07/19 16:26 Urine Blood 2+ (NEGATIVE) H 03/07/19 16:26 Urine Nitrate Negative (NEGATIVE) 03/07/19 16:26 Urine Bilirubin Negative (NEGATIVE) 03/07/19 16:26 Urine Urobilinogen Normal mg/dL (0.2-1.0) 03/07/19 16:26 Ur Leukocyte Esterase Neg Triston/uL (Negative) 03/07/19 16:26 Urine WBC (Auto) < 1 /hpf (0-5) 03/07/19 16:26 Urine RBC (Auto) < 1 /hpf (0-3) 03/07/19 16:26 Ur Squamous Epith Cells 1 /hpf (0-5) 03/07/19 16:26 Blood Type O POSITIVE 03/07/19 16:11 Antibody Screen Negative 03/07/19 16:11 - Hospital Course Hospital Course: On admission: 33-year-old female is sent to the ED by Dr. Lewis for evaluation of ectopic . Patient states she had been experiencing brown discharge and suprapubic/ right-sided abdominal pain for around 2-3 days, and found out that she is today. Patient states her last menstrual period was 01/22/2019. Patient denies fever, chills, back pain, or any urinary symptoms at this time. Admits to regular menses. Hospital course: Patent admitted on 03/07/19 for ectopic demonstrated on OB ultrasound. DR. Lau, OB attending, consulted by ED. Pt informed of risks of operative procedure and possible complications fully reviewed with patient and her partner and both verbalized understanding after all of their questions were answered to their full satisfaction. Pt requested to proceed and signed the consent, including the blood transfusion consent. Laparoscopy was attempted. Ex-lap with complete resection of Right Fallopian Tube with ectopic and with Ligature, Lysis of adhesions, Evacuation of Hemoperitoneum performed. After surgery patient was monitored on OB floor. CBC was monitored for blood loss, and pain was controlled via morphine and percocet. Nausea controlled Tigan. LR given for fluid resuscitation. Diet was accelerated over course by patient needs. Incision site was monitored over course for infection, but no signs of infection noted and patient remained afebrile over hospital course. Patient discharged on 03/10/19. Discharge Exam - Head Exam Head Exam: NORMAL INSPECTION - Additional Findings Additional findings: Head Exam Head Exam: NORMAL INSPECTION - Eye Exam Eye Exam: EOMI - ENT Exam ENT Exam: Mucous Membranes Moist - Respiratory Exam Respiratory Exam: Clear to Ausculation Bilateral. absent: Rales, Rhonchi, Wheezes - Cardiovascular Exam Cardiovascular Exam: +S1, +S2. absent: Murmur - GI/Abdominal Exam GI & Abdominal Exam: Soft, Tenderness Additional comments: tender around incision sites, site clean, dry, no erythema present - Extremities Exam Extremities Exam: Pedal Edema Additional comments: trace pedal edema - Back Exam Back Exam: absent: CVA tenderness (L), CVA tenderness (R) - Neurological Exam Neurological Exam: Alert, Awake, Oriented x3 - Psychiatric Exam Psychiatric exam: Normal Affect, Normal Mood - Skin Skin Exam: Dry, Normal Color, Warm Discharge Plan - Discharge Medications Prescriptions: Ibuprofen [Motrin Tab] 600 mg PO QID 6 Days #30 tab oxyCODONE/Acetaminophen [Percocet 5/325 mg Tab] 1 tab PO Q4 PRN 3 Days #10 tab PRN Reason: Pain, Moderate (4-7) - Follow Up Plan Condition: FAIR Disposition: HOME/ ROUTINE Instructions: Exploratory Laparotomy, Fallopian Tube Removal (DC) Additional Instructions: 33 F w/ POD # 2, s/p exploratory laparotomy with complete resection of right fallopian tube with ectopic , lysis of adhesions, evacuation of hemoperitoneum Patient discharged with instructions to continue below instructions - Symptomatic pain management with Ibuprofen and Percocet (prescriptions given at time of discharge) - Encourage ambulation & hydration - Keep incision open to air, and keep clean and dry - Pelvic rest x 6-8 weeks: no tampons, no sex, no douching - Follow up with DR. LEWIS in 5-7 days to remove koki and continue post- operative care Patient advised to return to ED if symptoms return or worsen. Pt seen and examined with Dr. Lee and agreed with his findings and POC. Referrals: Lexx Lewis MD [Staff Provider] - <Kayla Lau - Last Filed: 03/10/19 18:00> Provider - Provider Date of Admission: 03/07/19 20:03 Attending physician: Kayla Lau DO Consults: 03/07/19 18:35 Physician Consult Stat Comment: Consulting Provider: Kayla Lau Consulting Physician: Kayla Lau Reason for Consult: right ectopic Hospital Course - Lab Results Lab Results: Most Recent Lab Values WBC 11.3 K/uL (4.8-10.8) H 03/08/19 20:12 RBC 3.48 Mil/uL (3.80-5.20) L 03/08/19 20:12 Hgb 11.5 g/dL (11.0-16.0) 03/08/19 20:12 Hct 33.7 % (34.0-47.0) L 03/08/19 20:12 MCV 97.1 fL (81.0-99.0) 03/08/19 20:12 MCH 33.1 pg (27.0-31.0) H 03/08/19 20:12 MCHC 34.1 g/dL (33.0-37.0) 03/08/19 20:12 RDW 12.2 % (11.5-14.5) 03/08/19 20:12 Plt Count 207 K/uL (130-400) 03/08/19 20:12 MPV 8.9 fL (7.2-11.7) 03/08/19 20:12 Neut % (Auto) 67.4 % (50.0-75.0) 03/08/19 20:12 Lymph % (Auto) 20.7 % (20.0-40.0) 03/08/19 20:12 Granite % (Auto) 10.9 % (0.0-10.0) H 03/08/19 20:12 Eos % (Auto) 0.5 % (0.0-4.0) 03/08/19 20:12 Baso % (Auto) 0.5 % (0.0-2.0) 03/08/19 20:12 Neut # (Auto) 7.6 K/uL (1.8-7.0) H 03/08/19 20:12 Lymph # (Auto) 2.3 K/uL (1.0-4.3) 03/08/19 20:12 Granite # (Auto) 1.2 K/uL (0.0-0.8) H 03/08/19 20:12 Eos # (Auto) 0.1 K/uL (0.0-0.7) 03/08/19 20:12 Baso # (Auto) 0.1 K/uL (0.0-0.2) 03/08/19 20:12 PT 11.2 SECONDS (9.7-12.2) 03/07/19 19:20 INR 1.0 03/07/19 19:20 APTT 29.0 SECONDS (21-34) 03/07/19 19:20 Sodium 137 mmol/L (132-148) 03/07/19 16:11 Potassium 3.9 mmol/L (3.6-5.2) 03/07/19 16:11 Chloride 104 mmol/L (98-107) 03/07/19 16:11 Carbon Dioxide 25 mmol/L (22-30) 03/07/19 16:11 Anion Gap 12 (10-20) 03/07/19 16:11 BUN 11 mg/dL (7-17) 03/07/19 16:11 Creatinine 0.8 mg/dL (0.7-1.2) 03/07/19 16:11 Est GFR ( Amer) > 60 03/07/19 16:11 Est GFR (Non-Af Amer) > 60 03/07/19 16:11 Random Glucose 97 mg/dL (65-105) 03/07/19 16:11 Calcium 8.7 mg/dl (8.6-10.4) 03/07/19 16:11 Total Bilirubin 1.1 mg/dL (0.2-1.3) 03/07/19 16:11 AST 24 U/L (14-36) 03/07/19 16:11 ALT 28 U/L (9-52) 03/07/19 16:11 Alkaline Phosphatase 41 U/L (38-126) 03/07/19 16:11 Total Protein 6.8 g/dL (6.3-8.3) 03/07/19 16:11 Albumin 3.7 g/dL (3.5-5.0) 03/07/19 16:11 Globulin 3.1 gm/dL (2.2-3.9) 03/07/19 16:11 Albumin/Globulin Ratio 1.2 (1.0-2.1) 03/07/19 16:11 Beta HCG, Quant 748.86 mIU/ML 03/09/19 08:26 Urine Color Yellow (YELLOW) 03/07/19 16:26 Urine Clarity Clear (Clear) 03/07/19 16:26 Urine pH 7.0 (5.0-8.0) 03/07/19 16:26 Ur Specific [place] 1.013 (1.003-1.030) 03/07/19 16:26 Urine Protein Negative mg/dL (NEGATIVE) 03/07/19 16:26 Urine Glucose (UA) Normal mg/dL (Normal) 03/07/19 16:26 Urine Ketones Negative mg/dL (NEGATIVE) 03/07/19 16:26 Urine Blood 2+ (NEGATIVE) H 03/07/19 16:26 Urine Nitrate Negative (NEGATIVE) 03/07/19 16:26 Urine Bilirubin Negative (NEGATIVE) 03/07/19 16:26 Urine Urobilinogen Normal mg/dL (0.2-1.0) 03/07/19 16:26 Ur Leukocyte Esterase Neg [place]/uL (Negative) 03/07/19 16:26 Urine WBC (Auto) < 1 /hpf (0-5) 03/07/19 16:26 Urine RBC (Auto) < 1 /hpf (0-3) 03/07/19 16:26 Ur Squamous Epith Cells 1 /hpf (0-5) 03/07/19 16:26 Blood Type O POSITIVE 03/07/19 16:11 Antibody Screen Negative 03/07/19 16:11 Discharge Plan - Follow Up Plan Patient education suggested?: Yes
--- NOTE | 2019-03-10 16:20 | CP.PCM.PN ---
<RosaDavid - Last Filed: 03/10/19 17:43> Subjective - Date & Time of Evaluation Date of Evaluation: 03/10/19 Time of Evaluation: 16:14 - Subjective Subjective: PGY3 note for Dr Olivas's service Patient was seen and examined at bedside. Pt POD#3, s/p ex-lap w/ complete resection of right fallopian tube w/ ectopic and lysis of adhesions. Pt reports 3-4/10 pain at surgical site that is worsened with ambulation. Descr ibes pain as "tightness around the wound." Pain improved by percocet which reduces pain to 0-1/10. Denies any vaginal bleeding or vaginal discharge overnight. Patient is currently passing gas and urinating, but denies bowel movement since surgery. She is currently ambulating in the hallway and in her room, and reported drinking approximately 4 liters of water per day. She is tolerating her solid diet, denies nausea and vomiting. Admits she showered yesterday and allowed water to run over the wound as instructed. Patient denied fevers, chills, chest pain, chest tightness, shortness of breath, diarrhea, abdominal pain and numbness and tingling on extremities. Objective - Vital Signs/Intake and Output Vital Signs (last 24 hours): Temp Pulse Resp BP Pulse Ox 98.6 F 82 18 106/66 100 03/10/19 08:00 03/10/19 08:00 03/10/19 08:00 03/10/19 08:00 03/10/19 08:00 - Medications Medications: Current Medications Ibuprofen (Motrin Tab) 600 mg PO QID JENI Last Admin: 03/10/19 15:30 Dose: 600 mg Trimethobenzamide HCl (Tigan) 200 mg IM Q6 PRN PRN Reason: Nausea/Vomiting - Labs Labs: 03/08/19 20:12 03/07/19 16:11 PT 11.2 SECONDS (9.7-12.2) 03/07/19 19:20 INR 1.0 03/07/19 19:20 APTT 29.0 SECONDS (21-34) 03/07/19 19:20 - Additional Findings Additional findings: - Constitutional Appears: Non-toxic, No Acute Distress - Head Exam Head Exam: NORMAL INSPECTION - Eye Exam Eye Exam: EOMI - ENT Exam ENT Exam: Mucous Membranes Moist - Respiratory Exam Respiratory Exam: Clear to Ausculation Bilateral. absent: Rales, Rhonchi, Wheezes - Cardiovascular Exam Cardiovascular Exam: +S1, +S2. absent: Murmur - GI/Abdominal Exam GI & Abdominal Exam: Soft, Tenderness Additional comments: mild tender around incision sites, site clean, dry, no erythema present - Extremities Exam Extremities Exam: Pedal Edema Additional comments: trace pedal edema - Back Exam Back Exam: absent: CVA tenderness (L), CVA tenderness (R) - Neurological Exam Neurological Exam: Alert, Awake, Oriented x3 - Psychiatric Exam Psychiatric exam: Normal Affect, Normal Mood - Skin Skin Exam: Dry, Normal Color, Warm Assessment and Plan - Assessment and Plan (Free Text) Plan: 33 F w/ POD # 3, s/p exploratory laparotomy with complete resection of right fallopian tube with ectopic , lysis of adhesions, evacuation of hemoperitoneum - Symptomatic pain management with Ibuprofen and Percocet - Encourage ambulation - Encourage hydration - Patient was educated to take off bandage in the shower and allow water to run over her incision site - Monitor bowel movement Pt for discharge later today. Please see DC summary in record for further details. David Lee PGY3 D/w DR. OLIVAS <Kayla Olivas - Last Filed: 03/10/19 17:49> Objective - Vital Signs/Intake and Output Vital Signs (last 24 hours): Temp Pulse Resp BP Pulse Ox 98.6 F 82 18 106/66 100 03/10/19 08:00 03/10/19 08:00 03/10/19 08:00 03/10/19 08:00 03/10/19 08:00 - Labs Labs: 03/08/19 20:12 03/07/19 16:11 PT 11.2 SECONDS (9.7-12.2) 03/07/19 19:20 INR 1.0 03/07/19 19:20 APTT 29.0 SECONDS (21-34) 03/07/19 19:20 Assessment and Plan - Assessment and Plan (Free Text) Plan: Pt seen and examined with Dr. Lee and all of his findings and POC were fully reviewed and discussed with him and agreed on
== END 2019-03-10 16:00 | disposition home or self-care (01) | DRG 818 ==
LOC: C.ER 14:14 → C.SDS 20:02 → C.4M 20:03 → C.SDS 20:03
PROVIDERS: ADMIT Obstetrics & Gynecology; ATTEND Obstetrics & Gynecology
PROC: 0UT50ZZ Resection of Right Fallopian Tube, Open Approach (ICD-10-PCS; 2019-03-07)
PROC: 10T20ZZ Resection of Products of Conception, Ectopic, Open Approach (ICD-10-PCS; principal; 2019-03-07 08:00)
DX: O00.101 Right tubal pregnancy without intrauterine pregnancy (principal); Z68.41 Body mass index [BMI] 40.0-44.9, adult; E66.9 Obesity, unspecified